=== PATIENT | male | born 2000 | race Caucasian/White ===

== ENCOUNTER 2019-04-17 23:33 | Emergency (ER) | payer OTHER ==
[~2019-04-17] VITALS: Ht 182.9 cm; Wt 86.2 kg
[2019-04-17 23:34] VITALS: BP 154/69; Ht 182.9 cm; Wt 86.2 kg
== END 2019-04-18 00:29 | disposition other institution (70) ==
LOC: ED 23:33
DX: Z02.89 Encounter for other administrative examinations (principal)